=== PATIENT | female | born 2005 | race Caucasian/White ===

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

== ENCOUNTER 2024-11-12 18:26 | Emergency (ER) | payer OTHER ==
[~2024-11-12] VITALS: Ht 160 cm; Wt 65.8 kg
[2024-11-12] MEDS ORDERED: CLINDAMYCIN PHOSPHATE 150 MG/ML (300mg) IM STA (18:54)
[2024-11-12] MEDS ORDERED: CENTANY30 GM TOP (18:58)
[2024-11-12] MEDS ORDERED: CEPHALEXIN500 MG PO (18:58)
[2024-11-12] MEDS ORDERED: MUPIROCIN22 GM TOP (19:01)
== END 2024-11-12 18:42 | disposition home or self-care (01) ==
LOC: ER 18:26 → EMR PED 18:26
DX: L01.00 Impetigo, unspecified (principal)